=== PATIENT | female | born 1975 | race Caucasian/White ===

== ENCOUNTER 2016-11-18 18:26 | Emergency (ER) | payer OTHER | END 2016-11-18 19:11 | disposition home or self-care (01) | LOC: CED 18:26 | DX: B08.8 Other specified viral infections characterized by skin and mucous membrane lesions (principal); F19.10 Other psychoactive substance abuse, uncomplicated; F17.210 Nicotine dependence, cigarettes, uncomplicated; Z90.49 Acquired absence of other specified parts of digestive tract; Z48.02 Encounter for removal of sutures | CPT/HCPCS: 99282 ==